=== PATIENT | male | born 1985 | race Caucasian/White ===

== ENCOUNTER 2021-01-02 10:00 | Emergency (ER) | payer BC, SELFPAY ==
[2021-01-02 10:13] VITALS: BP 137/76; PULSE 73; RESP 14; TEMP 36.3; O2SAT 100
[2021-01-02] MEDS: IPRATROPIUM BR 0.02% INH SOLN 0.5 MG/2.5 ML VIAL INHALATION (10:37)
[2021-01-02] MEDS: ALBUTEROL SULFATE NEB 2.5 MG/3 ML INH INHALATION (10:37)
--- NOTE | 2021-01-02 10:38 | ED.URI ---
HPI - URI/Sore Throat General Chief Complaint: Upper Respiratory Infection Stated Complaint: Asthma Time Seen by Provider: 01/02/21 10:23 Source: patient and RN notes reviewed Mode of arrival: ambulatory Limitations: no limitations History of Present Illness HPI Narrative: Patient presents today with a 2-day history of asthma exacerbation. States his asthma always worsens when seasons are changing and storms are coming into the area. He reports increased coughing episodes especially with laughing or lifting heavy objects. Also reports some mild intermittent shortness of breath and wheezing. He takes Symbicort, albuterol inhaler, Zyrtec, and Singulair. Denies any fever, sore throat, congestion or rhinorrhea. He has had his first Covid vaccine on December 09. MD elicited complaint: cough Related Data Home Medications Medication Instructions Recorded Confirmed albuterol 90 mcg INHALATION QID PRN 01/02/21 01/02/21 budesonide-formoterol [Symbicort] 2 puff INHALATION Q12H 01/02/21 01/02/21 cetirizine [Zyrtec] 10 mg PO DAILY 01/02/21 01/02/21 montelukast [Singulair] 10 mg PO DAILY 01/02/21 01/02/21 Allergies Allergy/AdvReac Type Severity Reaction Status Date / Time codeine Allergy Nausea and Verified 01/02/21 10:21 Vomiting Review of Systems Review of Systems: Narrative: CONSTITUTIONAL: Denies body aches, fever, chills, or sweats. EYES: Denies visual changes, redness, or discharge. ENT: Denies rhinorrhea, congestion, sore throat, or otalgia. CARDIOVASCULAR: Denies chest pain, palpitations, or edema. RESPIRATORY: + Cough, shortness of breath, wheezing. GASTROINTESTINAL: Denies abdominal pain, nausea, vomiting, or diarrhea. GENITOURINARY: Denies dysuria or hematuria. SKIN: Denies rash, itching, or wounds. MUSCULOSKELETAL: Denies back pain, joint pain, or myalgia. NEUROLOGIC: Denies headache, numbness, tingling, or weakness. PSYCH: Denies depression or anxiety. [facility] Past Medical History Medical History (Updated 01/02/21 @ 11:05 by Yaa Cruz, [facility], ) Asthma Environmental allergies Surgical History Surgical History (Updated 01/02/21 @ 10:40 by Yaa Cruz, [facility], ) H/O inguinal hernia repair Social History Social History (Updated 01/02/21 @ 10:40 by Yaa Cruz, [facility], ) Smoking status: Never smoker Comments At time of signature, I have reviewed and agree with nursing past medical, surgical, social and family history unless otherwise noted. Please see nursing chart for further information. There is no relevant family history pertinent to the presenting complaint Exam Narrative: Exam Narrative: GENERAL: Well-appearing, well-nourished, and in no acute distress. HEAD: Normocephalic, atraumatic. EYES: EOMI. No redness or drainage. Conjunctivae normal. ENT: Mucous membranes pink and moist. Nares clear. No rhinorrhea. TMs normal bilaterally. Throat normal. Uvula midline. NECK: Normal AROM. Supple. No lymphadenopathy. CHEST: No respiratory distress. Clear to auscultation. Deep breathing elicits coughing episodes. HEART: Regular rate and rhythm. No murmur appreciated. Normal peripheral pulses. EXTREMITIES: Normal range of motion. No edema. SKIN: Warm, dry, no rash. Capillary refill normal. Normal skin turgor. NEURO: No focal deficits. Alert and oriented x3. Gait steady. PSYCH: Normal affect. No signs of depression or anxiety. Course Course Emergency Course: 1105-Patient states he is now able to take deeper breaths after Duoneb. Breath sounds normal. Vital Signs Vital signs: Vital Signs Temperature 97.4 F L 01/02/21 10:13 Pulse Rate 73 01/02/21 10:13 Respiratory Rate 14 01/02/21 10:13 Blood Pressure 137/76 01/02/21 10:13 Pulse Oximetry 100 01/02/21 10:13 Temperature 97.4 F L 01/02/21 10:13 Pulse Rate 73 01/02/21 10:13 Respiratory Rate 14 01/02/21 11:00 Blood Pressure 137/76 01/02/21 10:13 Pulse Oximetry 99 01/02/21 11:00 Reviewed.
[2021-01-02 11:00] VITALS: RESP 14; O2SAT 99
== END 2021-01-02 11:10 | disposition home or self-care (01) ==
PROVIDERS: Emergency Provider Nurse Practitioner
DX: J45.901 Unspecified asthma with (acute) exacerbation (principal)
CPT/HCPCS: 94640; 99213; G0463

== ENCOUNTER 2021-03-09 09:58 | Emergency (ER) | payer BC, SELFPAY ==
[2021-03-09 10:19] VITALS: BP 121/72; PULSE 101; RESP 16; TEMP 37.2; O2SAT 99
--- NOTE | 2021-03-09 11:04 | ED.URI ---
HPI - URI/Sore Throat General Chief Complaint: Upper Respiratory Infection Stated Complaint: sob,cough,chest pain, due to asthma Time Seen by Provider: 03/09/21 11:04 Source: patient and RN notes reviewed Mode of arrival: ambulatory Limitations: no limitations History of Present Illness HPI Narrative: 36 year old male who presents to [facility] with complaints of asthma flare this morning with increased shortness of breath with wet cough of whitish sputum. He reports that he has chest tightness with his cough. He has used his Symbicort inhaler and Albuterol inhaler this morning along with Zyrtec, Flonase, Singulair and Benadryl for his symptoms with no improvement. He states that he does not normally have wheezing with his flares but has chronic allergies and sinus symptoms with the shortness of breath. Patient denies any known fevers, chills,or sweats, no sore throat or ear pain. MD elicited complaint: cough, nasal congestion and other (asthma flare) Pertinent past history: sinusitis, asthma and seasonal allergies Consistency: constant Description of mucous: other (white) Able to tolerate fluids by mouth: Yes Exacerbating factors: exertion Relieving factors: nothing Associated symptoms: rhinorrhea, nasal congestion, cough and shortness of breath Treatments prior to arrival: other (inhalers, Zyrtec, Flonase, Singulair and Benadryl) Related Data Home Medications Medication Instructions Recorded Confirmed albuterol 90 mcg INHALATION QID PRN 01/02/21 03/09/21 budesonide-formoterol [Symbicort] 2 puff INHALATION Q12H 01/02/21 03/09/21 cetirizine [Zyrtec] 10 mg PO DAILY 01/02/21 03/09/21 montelukast [Singulair] 10 mg PO DAILY 01/02/21 03/09/21 azelastine 1 spray INTRANASAL Q12H 03/09/21 03/09/21 fluticasone propionate [Flonase] 1 spray INTRANASAL Q12H 03/09/21 03/09/21 Allergies Allergy/AdvReac Type Severity Reaction Status Date / Time codeine Allergy Nausea and Verified 03/09/21 10:59 Vomiting Review of Systems Review of Systems: Narrative: CONSTITUTIONAL: Denies fever, chills, or sweats. EYES: Denies visual changes, redness, or discharge. ENT: Positive rhinorrhea, congestion, no sore throat, or otalgia. CARDIOVASCULAR: Denies chest pain reports tightness to chest with cough, no palpitations, or edema. RESPIRATORY: Positive cough or dyspnea. GASTROINTESTINAL: Denies abdominal pain, nausea, vomiting, or diarrhea. GENITOURINARY: Denies dysuria or hematuria. SKIN: Denies rash or itching. MUSCULOSKELETAL: Denies back pain, joint pain, or myalgia. NEUROLOGIC: Denies headache, numbness, or weakness. PSYCHIATRIC: Denies anxiety or depression. All systems reviewed & are unremarkable except as noted in HPI and below PMFSH Past Medical History Medical History Asthma Environmental allergies Surgical History Surgical History H/O inguinal hernia repair Family History Family History (Updated 03/10/21 @ 20:12 by Yana Chappell NP) Grandparent Hypertension Cerebrovascular accident Heart disease Social History Social History (Updated 03/10/21 @ 20:13 by Yana Chappell NP) Smoking status: Never smoker Alcohol intake: current Alcohol use details: rare social Substance use: never Living arrangements: alone Gender identity (if verbalized by the patient): Male Comments At time of signature, agree with nursing past medical, surgical, social and family history. There is no relevant family history pertinent to the presenting complaint Exam Narrative: Exam Narrative: GENERAL: Well-appearing, well-nourished, and in no acute distress. HEAD: Normocephalic, atraumatic. EYES: PERRLA and EOMI. ENT: Nares red and swollen with clear rhinorrhea no epistaxis. Mucous membranes moist.TM's normal with good light reflex, throat pink with no swelling or exudates or lesions, no tonsil enlargement small amount
== END 2021-03-09 11:15 | disposition home or self-care (01) ==
PROVIDERS: Emergency Provider Registered Nurse
DX: J45.901 Unspecified asthma with (acute) exacerbation (principal); J06.9 Acute upper respiratory infection, unspecified
CPT/HCPCS: 99213; G0463

== ENCOUNTER 2021-10-21 14:00 | Emergency (ER) | payer BC, SELFPAY ==
--- NOTE | 2021-10-21 14:08 | ED.URI ---
HPI - URI/Sore Throat General Chief Complaint: Upper Respiratory Infection Stated Complaint: Sinus Pain/Headache/Cough Time Seen by Provider: 10/21/21 14:08 Source: patient and RN notes reviewed History of Present Illness HPI Narrative: Patient is a 36-year-old male who presents the urgent care with complaints of sinus pain and pressure, frontal headache and mild cough. Patient states that it started Wednesday with a stuffy nose and he has been using nasal spray. Patient states that he has chronic recurrent sinus infections and this feels the same . Patient denies of any fever, nausea or vomiting. Denies any known exposure to COVID. Patient states he has been vaccinated. No other acute complaints. No acute distress noted. Patient arrived plan of care. Some parts of this dictation were generated by voice recognition software and may contain typographical and/or grammatical inaccuracies. Related Data Home Medications Medication Instructions Recorded Confirmed albuterol 90 mcg INHALATION QID PRN 01/02/21 10/21/21 budesonide-formoterol [Symbicort] 2 puff INHALATION Q12H 01/02/21 10/21/21 cetirizine [Zyrtec] 10 mg PO DAILY 01/02/21 10/21/21 azelastine 1 spray INTRANASAL Q12H 03/09/21 10/21/21 fluticasone propionate [Flonase] 1 spray INTRANASAL Q12H 03/09/21 10/21/21 Allergies Allergy/AdvReac Type Severity Reaction Status Date / Time codeine Allergy Nausea and Verified 10/21/21 14:15 Vomiting Review of Systems Review of Systems: CONSTITUTIONAL: Denies fever, chills, or sweats. EYES: Denies visual changes, redness, or discharge. ENT: Reports of rhinorrhea, congestion/sinus pain and pressure CARDIOVASCULAR: Denies chest pain, palpitations, or edema. RESPIRATORY: Reports a mild nonproductive cough without dyspnea GASTROINTESTINAL: Denies abdominal pain, nausea, vomiting, or diarrhea. GENITOURINARY: Denies dysuria or hematuria. SKIN: Denies rash or itching. MUSCULOSKELETAL: Denies back pain, joint pain, or myalgia. NEUROLOGIC: D reports of headache All other systems reviewed are negative, except as documented in HPI. [facility] Past Medical History Medical History Asthma Environmental allergies Surgical History Surgical History H/O inguinal hernia repair Family History Family History (Updated 03/10/21 @ 20:12 by Yana Chappell NP) Grandparent Hypertension Cerebrovascular accident Heart disease Social History Social History (Updated 03/10/21 @ 20:13 by Yana Chappell NP) Smoking status: Never smoker Alcohol intake: current Alcohol use details: rare social Substance use: never Gender identity (if verbalized by the patient): Male Comments At the time of my signature, I reviewed and agree with the nursing past medical, surgical, social, and family history. There is no relevant family history pertinent to the patient complaint. Exam Narrative: GENERAL: This is a well-nourished, well-developed patient, in no apparent distress. HEAD: normocephalic, atraumatic. Frontal sinus tenderness EYES: PERRL. Sclera clear/white. Vision is grossly intact. EARS: External ears normal, auditory canals clear and without drainage, TMs normal without perforation. Hearing grossly intact. NOSE: External nose normal with no obvious nasal discharge, nares without redness, no rhinorrhea. THROAT: Mucous membranes moist, posterior pharynx clear. Mild postnasal drainage NECK: Neck supple CARDIOVASCULAR: Regular rate and rhythm without murmurs, gallops, or rubs. RESPIRATORY: Clear to auscultation. Breath sounds equal bilaterally. No wheezes, rales, or rhonchi. SKIN: warm, intact with no suspicious lesions or rash, good texture and turgor. NEURO: awake, alert, and oriented to person, place and time. There were no obvious focal neurologic abnormalities. EXTREMITIES: No clubbing, cyanosis, or edema. Co
[2021-10-21 14:09] VITALS: BP 129/87; PULSE 108; RESP 16; O2SAT 99
== END 2021-10-21 14:24 | disposition home or self-care (01) ==
PROVIDERS: Emergency Provider Nurse Practitioner Family
DX: J32.9 Chronic sinusitis, unspecified (principal)
CPT/HCPCS: 99213; G0463